=== PATIENT | female | born 1935 | race Caucasian/White ===

== ENCOUNTER → 2018-07-06 08:45 | Outpatient (CLI) | payer MEDICARE, SELFPAY ==
--- NOTE | 2018-07-06 08:48 | CDU_ITS ---
Reason For Study: Carotid artery stenosis Rt. Velocities/BP Lt. Velocities/BP Prox CCA 96.2/25.2 cm/sec. Prox CCA 67/19.3 cm/sec. Mid CCA 76.8/25.8 cm/sec. Mid CCA 65.7/22.3 cm/sec. Dist CCA 92.6/28.7 cm/sec. Dist CCA 59.2/18.8 cm/sec. Prox ICA 70.4/26.4 cm/sec. Prox ICA 72.7/21.7 cm/sec. Mid ICA 93.8/33.4 cm/sec. Mid ICA 60.2/23.7 cm/sec. Dist ICA 108/46.3 cm/sec. Dist ICA 52.4/15.9 cm/sec. Rt. ICA/CCA = 1.17. Lt. ICA/CCA = 1.11. Prox ECA 78/13.5 cm/sec. Prox ECA 53/9.82 cm/sec. Rt. Vert. 73.8/18.8 cm/sec. Lt. Vert. 69.5/25.1 cm/sec. Right Extracranial There is no significant atherosclerotic plaque noted in the right common carotid artery. There is heterogeneous, smooth atherosclerotic plaque noted in the right internal carotid artery. There is no significant atherosclerotic plaque noted in the right external carotid artery. Antegrade flow is noted in the right vertebral artery. Left Extracranial There is heterogeneous, smooth atherosclerotic plaque noted in the left common carotid artery. There is intimal thickening but no significant atherosclerotic plaque noted in the left internal carotid artery. There is no significant atherosclerotic plaque noted in the left external carotid artery. Antegrade flow is noted in the left vertebral artery. Procedure Carotid Duplex [id number]. Exam performed in department. Interpretation Summary Mild (<50%) stenosis right extracranial internal carotid. Mild (<50%) stenosis left extracranial internal carotid. Flow within the vertebral arteries is antegrade bilaterally. Ordering Physician: Trung Amaya Referring Physician: Aristeo Montano Performed By: Yulia Kraus RVT and Student
== END ==
PROVIDERS: Family Provider Family Medicine; PCP Family Medicine; Visit Provider Surgery Vascular Surgery
DX: I65.23 Occlusion and stenosis of bilateral carotid arteries (principal); I10 Essential (primary) hypertension; M79.605 Pain in left leg; M79.604 Pain in right leg; M79.89 Other specified soft tissue disorders; R09.89 Other specified symptoms and signs involving the circulatory and respiratory systems
CPT/HCPCS: 93880

== ENCOUNTER 2020-12-24 09:09 | Outpatient (RCR) | payer MEDICARE, SELFPAY | END 2020-12-24 23:59 | LOC: IMMUN 09:09 | PROVIDERS: PCP Family Medicine; Referring Provider Family Medicine; Visit Provider Family Medicine | DX: Z23 Encounter for immunization (principal) | CPT/HCPCS: 0011A; 0012A ==

== ENCOUNTER → 2021-02-06 09:53 | Outpatient (CLI) | payer MEDICARE, SELFPAY ==
--- NOTE | 2021-02-06 09:56 | CDU_ITS ---
Reason For Study: Carotid stenosis Rt. Velocities/BP Lt. Velocities/BP Prox CCA 79.9/17.3 cm/sec. Prox CCA 71.8/20.3 cm/sec. Mid CCA 85.2/21.3 cm/sec. Mid CCA 70/18.6 cm/sec. Dist CCA 82.6/18.6 cm/sec. Dist CCA 63.9/17.7 cm/sec. Prox ICA 54.2/10.2 cm/sec. Prox ICA 53.5/11.6 cm/sec. Mid ICA 84.9/24.5 cm/sec. Mid ICA 62.6/19.8 cm/sec. Dist ICA 94.8/30 cm/sec. Dist ICA 66.1/15.8 cm/sec. Rt. ICA/CCA = 1.15. Lt. ICA/CCA = 0.94. Prox ECA 121.1/7.9 cm/sec. Prox ECA 69.2/2.9 cm/sec. Rt. Vert. 37.8/9 cm/sec. Lt. Vert. 58.1/15.1 cm/sec. Right Extracranial There is intimal thickening but no significant atherosclerotic plaque noted in the right common carotid artery. There is heterogeneous, smooth atherosclerotic plaque noted in the right internal carotid artery. There is intimal thickening but no significant atherosclerotic plaque noted in the right external carotid artery. Antegrade flow is noted in the right vertebral artery. Left Extracranial There is intimal thickening but no significant atherosclerotic plaque noted in the left common carotid artery. There is heterogeneous, irregular atherosclerotic plaque noted in the left internal carotid artery. There is no significant atherosclerotic plaque noted in the left external carotid artery. Antegrade flow is noted in the left vertebral artery. Procedure Carotid Duplex 36239. This is a Carotid Duplex examination using B-mode, color flow and specral Doppler. Exam performed in department. VL/Carotid Duplex Ultrasound Interpretation Summary Mild (<50%) stenosis right extracranial internal carotid. Mild (<50%) stenosis left extracranial internal carotid. Flow within the vertebral arteries is antegrade bilaterally. Ordering Physician: Trung Amaya Referring Physician: Aristeo Montano Performed By: Loly Hairston RVT
== END ==
PROVIDERS: PCP Family Medicine; Referring Provider Surgery Vascular Surgery; Visit Provider Surgery Vascular Surgery
DX: I65.23 Occlusion and stenosis of bilateral carotid arteries (principal)
CPT/HCPCS: 93880

== ENCOUNTER 2021-04-03 18:50 | Inpatient (IN) | payer MEDICARE, SELFPAY ==
--- NOTE | 2021-04-03 21:39 | HP.PCM_ITS ---
HPI - General General Date of Admission: 04/03/21 HPI Narrative 03/21/2021 RESHMA CLEMONS, is a 85 Female with below past medical history admitted to [facility] with bright red blood per rectum. Patient is on aspirin, plavix for remote history of coronary artery disease. Patient hypotensive on presentation. Hemoglobin 9, high sensitivity troponin 74, but patient has chronic elevation of troponin. Patient presented to [facility] Emergency Department, IV fluid bolus given, transferred to [facility] for further care. Diarrhea for 2-3 days, noted blood in stool day of admission, denies abdominal pain. Trend troponin for elevated Troponin. Monitor H&H, transfuse if hemoglobin < 8, Protonix IV, check fecal occult blood, consult GI for bright red blood per rectum. Monitor acute on chronic kidney disease. CT abdomen/pelvis negative for diverticulitis. GI offered colonoscopy for lower GI bleed, patient declined colonoscopy. Acute kidney injury improved. H&H stable. Elevated troponin chronic thought secondary to chronic kidney disease. Hyponatremia improved with fluid restriction. [facility] Medical History (Updated 04/04/21 @ 01:51 by Elda Dalton) Anxiety Asthma Congestive heart failure (CHF) GERD (gastroesophageal reflux disease) GI bleed History of transcatheter aortic valve replacement (TAVR) Hypertension Kidney disease Pacemaker Stroke/cerebrovascular accident Home Medications acetaminophen 650 mg PO Q6H PRN 04/03/21 [History Last Taken Unknown] aspirin 81 mg PO DAILY 04/03/21 [History Last Taken Unknown] benzonatate 100 mg PO TID 04/03/21 [History Last Taken Unknown] clopidogrel [Plavix] 75 mg PO DAILY 04/03/21 [History Last Taken Unknown] furosemide 20 mg PO DAILY 04/03/21 [History Last Taken Unknown] gabapentin 100 mg PO TID 04/03/21 [History Last Taken Unknown] guaifenesin [Mucinex] 600 mg PO BID 04/03/21 [History Last Taken Unknown] isosorbide mononitrate 30 mg PO DAILY 04/03/21 [History Last Taken Unknown] lidocaine 1 applic TOPICAL BID PRN 04/03/21 [History Last Taken Unknown] melatonin 3 mg PO QHS 04/03/21 [History Last Taken Unknown] mirtazapine [Remeron] 7.5 mg PO QHS 04/03/21 [History Last Taken Unknown] multivitamin 1 tab PO DAILY 04/03/21 [History Last Taken Unknown] oxycodone [OxyIR] 5 mg PO Q4H PRN 04/03/21 [History Last Taken Unknown] pantoprazole [Protonix] 40 mg PO BIDAC 04/03/21 [History Last Taken Unknown] rosuvastatin [Crestor] 10 mg PO QHS 04/03/21 [History Last Taken Unknown] sodium chloride [[place] Nasal Mist] 1 spray INTRANASAL Q6H PRN PRN 04/03/21 [History Last Taken Unknown] sodium zirconium cyclosilicate [Lokelma] 5 g PO DAILY 04/03/21 [History Last Taken Unknown] Allergy/AdvReac Type Severity Reaction Status Date / Time quinapril Allergy Swelling Verified 04/03/21 19:58 amoxicillin AdvReac Nausea/Vom/ Verified 04/03/21 19:57 Diarrhea ciprofloxacin AdvReac Nausea Verified 04/03/21 19:57 levofloxacin AdvReac Nausea/Vom/ Verified 04/03/21 19:59 Diarrhea quinapril hcl Allergy Swelling Uncoded 04/03/21 19:59 Surgical History (Updated 04/03/21 @ 21:[address] Devin Napoles MD) History of heart artery stent Social History (Updated 04/03/21 @ 21:[address] Devin Napoles MD) household members: spouse Smoking Status: Never smoker alcohol intake: never substance use type: does not use ROS Constitutional Constitutional: Denies chills, fever(s) or weight gain ENT HEENT: Denies headache(s), nasal congestion or nasal discharge Cardiovascular Cardiovascular: Denies chest pain or palpitations Respiratory/Chest Respiratory/Chest: Denies cough, excessive phlegm production or shortness of breath with exertion Gastrointestinal Gastrointestinal: Denies abdominal pain, nausea or vomiting Genitourinary Genitourinary: Denies dysuria Musculoskeletal Musculoskeletal: Denies joint pain or joint swelling Integumentary Integumentary: Denies rash or wounds Neurologic Neurologic: Denies focal weakness, numbness or tingling Psychiatric Psychiatric: Reports auditory hallucinations; Denies anxiety, depression, homicidal ideation or suicidal ideation Physical Exam Const alert and oriented x3 General Appearance: cooperative HEENT normocephalic Eyes PERRL and EOMs intact bilaterally Neck supple, no JVD and no carotid bruits Resp normal respiratory effort, normal air movement and clear to auscultation bilaterally Cardio regular rate and regular rhythm GI normal to inspection, nondistended, normoactive bowel sounds, non-tender and non-distended Extremity normal capillary refill General Extremity: Negative for edema Skin no rashes or lesions noted General Skin Exam: no breakdown Psych affect normal Appearance: appropriate Results Lab / Micro Data Result Diagrams: 04/04/21 05:26 04/04/21 05:26 Assessment & Plan Assessment/Plan (1) Debility: (2) Lower gastrointestinal bleeding: (3) Elevated troponin: (4) Chronic kidney disease: (5) Hyponatremia: (6) Asthma: (7) Osteoarthritis: (8) GERD (gastroesophageal reflux disease): (9) Gout: (10) Hypertension: (11) Stroke: (12) Congestive heart failure: (13) Coronary artery disease: PLAN: 85 year old female with below past medical history hospitalized for lower GI bleed, diverticulitis ruled out, patient declined colonoscopy, complicated by acute on chronic kidney disease, hyponatremia, elevated troponin, admitted to TCU with debility, here for rehabilitation, strengthening, prior to discharge home with . * Debility - PT/OT. * Pain - Tylenol 1000MG Q6H PRN pain (1-5), Oxycodone 5MG Q4H PRN pain (6-10), Lidoderm 5% ointment BID PRN. * Bowel - Miralax 17GM daily, Senna/colace 1 tablet BID. * Adult immunization - Administer Prevnar 13, Pneumovax 23, Fluzone, COVID19 vaccine as appropriate. * DVT prophylaxis - Hold, recent GI bleed, on dual antiplatelet therapy. * Coronary Artery Disease status post 4 stents - Isosorbide [place] 30MG daily, Plavix 75MG daily, Aspirin 81MG daily. * Hyperlipidemia - Atorvastatin 20MG QHS. * Chronic cough - Tessalon Perles 100MG TID PRN, Mucinex 600MG BID. * Edema - Lasix 20MG daily. * Neuropathic pain - Gabapentin 100MG TIDCM. * Insomnia - Melatonin 3MG QHS. * Depression/insomnia/appetite loss - Mirtazapine 7.5MG QHS, stable chronic residential use, GDR not recommended. * Nutrition - MVI daily. * GERD - Pantoprazole 40MG BID. * Dry nares - Sodium chloride 1 spray Q6H PRN. * Hyperkalemia - K 5.4, Kayexalate 15GM PO x 1 bottle, BMP next day. * Anemia - Hemoglobin 7.2, Type & Cross 2 units PRBC, transfuse per protocol, H&H 24 hours after transfusion.
[2021-04-03 22:13] VITALS: BP 120/62; PULSE 85; RESP 18; TEMP 36.8; O2SAT 95
[2021-04-03 22:45] VITALS: O2SAT 95
[2021-04-03] MEDS: MELATONIN 3 MG TABLET PO (22:54)
[2021-04-03] MEDS: Atorvastatin Calcium 20 MG Tablet PO (22:54)
[2021-04-03] MEDS: Mirtazapine 15 MG Tablet 7.5 MG PO (22:55)
[2021-04-03] MEDS: Lidocaine 5% Patch 1 PATCH TOPICAL (22:58)
[2021-04-03 23:00] VITALS: BMI 27.3
[2021-04-04 05:29] VITALS: BP 111/48; PULSE 94; RESP 19; TEMP 36.3; O2SAT 91
[2021-04-04] MEDS: Clopidogrel Bisulfate 75 MG Tablet PO (05:32)
[2021-04-04] MEDS: Senna/Docusate Sodium 1 Tablet PO ×2 (05:32→17:08)
[2021-04-04] MEDS: guaiFENesin 600 MG Tablet PO ×2 (05:32→17:07)
[2021-04-04] MEDS: Polyethylene Glycol 3350 17 GM PACKET PO (05:32)
[2021-04-04] MEDS: Furosemide 20 MG Tablet PO (05:33)
[2021-04-04 05:36] LABS: Absolute Lymphocyte Count 2.29 X10^3/uL (0.83-4.51); Absolute Neutrophil Count 4.4 X10^3/uL (2.0-7.7); Basophil# 0.06 X10^3/uL; Basophil% 0.8 % (0-1); Eosinophil# 0.37 X10^3/uL; Eosinophils% 4.7 % (0-5); Hematocrit 23.9 % (37-47); Hemoglobin 7.2 g/dL (12.0-15.0); Lymphocyte # 2.29 X10^3/ul (0.83-4.51); Lymphocyte % 29.2 % (19-41); Mean Corp Hgb Conc 30.1 g/dL (32-36); Mean Corpuscular Hgb 30.3 pg (27.0-32.0); Mean Corpuscular Volume 100.4 fL (81-99); Mean Platelet Vol. 9.7 fl (6.2-12.0); Monocyte# 0.71 X10^3/uL; NRBC Flagged by Analyzer 0 % (0-5); Neutrophil # 4.39 X10^3/uL (2.7-7.7); Neutrophil % 55.9 % (47-70); Platelet Count 243 K/mm3 (150-450); RBC Distribution Width CV 14.5 % (11.6-14.6); Red Blood Count 2.38 M/mm3 (4.2-5.4); White Blood Count 7.9 K/mm3 (4.4-11.0)
[2021-04-04 05:57] LABS: Anion Gap 5 (5-15); BUN 65 mg/dL (7-18); BUN/Creat Ratio 25.7 RATIO (10-20); Calcium,Total 9.7 mg/dL (8.5-10.1); Chloride 111 mmol/L (98-107); Creatinine, Serum 2.53 mg/dL (0.55-1.02); EST Glomerular Filtration Rate 19 mL/min (>60); Est Glom Filt Rate - Afr Amer 23 mL/min (>60); Estimated Creatinine Clearance 11.68 ml/min; Glucose 91 mg/dL (74-106); Potassium 5.2 mmol/L (3.5-5.1); Sodium Level 140 mmol/L (136-145)
[2021-04-04] MEDS: Gabapentin 100 MG Capsule PO ×3 (08:06→17:07)
[2021-04-04] MEDS: Multivitamins,Therapeutic Tablet 1 TABLET PO (08:06)
[2021-04-04] MEDS: Isosorbide Mononitrate 30 MG Tablet PO (08:06)
[2021-04-04] MEDS: Pantoprazole Sodium 40 MG Tablet PO ×2 (08:06→17:07)
[2021-04-04] MEDS: Aspirin 81 MG TAB.CHEW PO (08:07)
--- NOTE | 2021-04-04 10:47 | CASEMGMT ---
Social Work Met with pt for initial assessment. Discussed Code status and reviewed and assisted with completing MOLST form. Pt choosing to be DNRCCA with no intubation and trial artificial nutrition if needed. Communication to nursing and doctor and MOLST form placed on chart. Requested palliative referral. Referral made. Explained [facility] insurance with NRD of 04/09 and continued stay is not guaranteed. Pt plans to return home with her spouse at time of discharge. SW will continue to follow. CARRIE Tanner
[2021-04-04] MEDS: Sodium Polystyrene Sulfonate 15 GM/60 ML UDC PO (10:48)
[2021-04-04] MEDS: Tuberculin,Purif.prot.deriv. 50 TU/ML Vial 0.1 ML ID (10:48)
[2021-04-04 13:26] VITALS: BP 115/52; PULSE 84; RESP 18; TEMP 36.7; O2SAT 95
--- NOTE | 2021-04-04 15:01 | CHAPLAIN ---
Type of Pastoral Visit _x__ Initial Visit ___ Follow-up Visit ___ On-call Visit ___ General Patient Visit ___ Spiritual Assessment ___ Family Conference ___ Bereavement ___ Rapid Response ___ Code Blue ___ Other (describe below) Pastoral Care Referral From _x__ Patient ___ Family ___ Nurse ___ Physician ___ Sr. Logistics Analyst ___ Motor Analyst ___ Other (describe below) Sacrament/Intervention ___ Active listening ___ Anointing ___ Sabianism ___ Bereavement ___ Communion ___ Penelope exploration ___ ___ Life review ___ Prayer ___ Reconciliation ___ Sacrament of Sick _x__ Supportive presence ___ Wedding ___ Other (describe below) Pastoral Comments introduction to patient and the role of the extension service advisor; pt has her database administration manager visiting at this time; welcome to this clergy; offer of support for future days
--- NOTE | 2021-04-04 15:44 | PHA.CONS_ITS ---
Progress Note - Pharmacy Subjective: TCU ADMISSION Objective: Allergies quinapril Allergy (Verified 04/03/21 19:58) Swelling amoxicillin Adverse Reaction (Verified 04/03/21 19:57) Nausea/Vom/Diarrhea ciprofloxacin Adverse Reaction (Verified 04/03/21 19:57) Nausea levofloxacin Adverse Reaction (Verified 04/03/21 19:59) Nausea/Vom/Diarrhea Current Medications Generic Name Dose Route Start Last Admin Trade Name Freq PRN Reason Stop Dose Admin Acetaminophen 1,000 mg 04/03/21 21:59 Acetaminophen 500 Mg Tablet PO Q6H PRN PRN pain 1-5 Aspirin 81 mg 04/04/21 08:00 04/04/21 08:07 Aspirin 81 Mg Tab.Chew PO 81 mg DAILYCM PRADEEP Administration Atorvastatin Calcium 20 mg 04/03/21 22:00 04/03/21 22:54 Atorvastatin Calcium 20 Mg Tablet PO 20 mg QHS PRADEEP Administration Benzonatate 100 mg 04/03/21 20:06 Benzonatate 100 Mg Capsule PO TID PRN PRN COUGH Clopidogrel Bisulfate 75 mg 04/04/21 06:00 04/04/21 05:32 Clopidogrel Bisulfate 75 Mg Tablet PO 75 mg DAILY PRADEEP Administration Furosemide 20 mg 04/04/21 06:00 04/04/21 05:33 Furosemide 20 Mg Tablet PO 20 mg DAILY PRADEEP Administration Gabapentin 100 mg 04/04/21 07:45 04/04/21 12:05 Gabapentin 100 Mg Capsule PO 05/04/21 07:46 100 mg TIDCM PRADEEP Administration Guaifenesin 600 mg 04/04/21 06:00 04/04/21 05:32 Guaifenesin 600 Mg Tablet PO 600 mg BID PRADEEP Administration Isosorbide Mononitrate 30 mg 04/04/21 08:00 04/04/21 08:06 Isosorbide Mononitrate 30 Mg Tablet PO 30 mg DAILYCM PRADEEP Administration Lidocaine 1 patch 04/04/21 22:00 Lidocaine 5% Patch TOPICAL QHS [facility] Protocol Melatonin 3 mg 04/03/21 22:00 04/03/21 22:54 Melatonin 3 Mg Tablet PO 3 mg QHS PRADEEP Administration Mirtazapine 7.5 mg 04/03/21 22:00 04/03/21 22:55 Mirtazapine 15 Mg Tablet PO 7.5 mg QHS PRADEEP Administration Multivitamins 1 tablet 04/04/21 08:00 04/04/21 08:06 Multivitamins,Therapeutic Tablet PO 1 tablet DAILYCM PRADEEP Administration Oxycodone HCl 5 mg 04/03/21 20:29 Oxycodone 5 Mg Tablet PO Q4H PRN PRN pain 5-10 Pantoprazole Sodium 40 mg 04/04/21 07:30 04/04/21 08:06 Pantoprazole Sodium 40 Mg Tablet PO 40 mg BIDAC PRADEEP Administration Polyethylene Glycol 17 gm 04/04/21 06:00 04/04/21 05:32 Polyethylene Glycol 3350 17 Gm Packet PO 17 gm DAILY PRADEEP Administration Senna/Docusate Sodium 1 tablet 04/04/21 06:00 04/04/21 05:32 Senna/Docusate Sodium 1 Tablet PO 1 tablet BID PRADEEP Administration Sodium Chloride 1 spray 04/03/21 20:06 Sodium Chloride 0.65% 1 [place].Btl NASAL Q6H PRN PRN CONGESTION Tuberculin PPD 0.1 ml 04/11/21 10:00 Tuberculin,Purif.Prot.Deriv. 50 Tu/Ml Vial ID 04/11/21 10:01 X1 ONE Problem List (Last Updated 04/04/21 @ 01:51 by Elda Dalton) Coronary artery disease (Acute) Congestive heart failure (Acute) Stroke (Acute) Hypertension (Chronic) Gout (Acute) GERD (gastroesophageal reflux disease) (Acute) Osteoarthritis (Acute) Asthma (Acute) Debility (Acute) Lower gastrointestinal bleeding (Acute) Elevated troponin (Acute) Chronic kidney disease (Chronic) Hyponatremia (Acute) Vital Signs Temp Pulse Resp BP Pulse Ox 98.0 F 84 18 115/52 L 95 04/04/21 13:26 04/04/21 13:26 04/04/21 13:26 04/04/21 13:26 04/04/21 13:26 Oxygen Delivery Method Room Air Weight: 63.5 kg Body Mass Index (BMI) 27.3 Sodium 140 mmol/L (136-145) 04/04/21 05:26 Potassium 5.2 mmol/L (3.5-5.1) H 04/04/21 05:26 Chloride 111 mmol/L (98-107) H 04/04/21 05:26 Carbon Dioxide 24.0 mmol/L (21.0-32.0) 04/04/21 05:26 Anion Gap 5 (5-15) 04/04/21 05:26 BUN 65 mg/dL (7-18) H 04/04/21 05:26 Creatinine 2.53 mg/dL (0.55-1.02) H 04/04/21 05:26 Est GFR (MDRD) Af Amer 23 mL/min (>60) L 04/04/21 05:26 Est GFR (MDRD) Non-Af 19 mL/min (>60) L 04/04/21 05:26 BUN/Creatinine Ratio 25.7 RATIO (10-20) H 04/04/21 05:26 Glucose 91 mg/dL (74-106) 04/04/21 05:26 Assessment/Plan: 1. Pain: Tylenol 1000mg PO Q6h PRN Pain 1-5, Oxycodone 5mg PO Q4h PRN Pain 5-10, Lidocaine Patch 1 patch topically QHS. Please continue to monitor for increased/decreased S/S pain, local irritation with lidocaine patch use. 2. CAD/HLD/Edema: Aspirin 81mg PO Daily, Lipitor 20mg PO QHS, Plavix 75mg PO Daily, Lasix 20mg PO Daily, Imdur 30mg PO Daily. Please continue to monitor for S/S bleeding, given recent GI bleed/anemia, BP, pulse, I/O, electrolytes, renal function, lipid panel annually or sooner if clinically indicated. *3. Neuropathic pain: Gabapentin 100mg PO TIDCM thru 05/04/21. Please consider decreasing dose to 100mg PO daily due to reduced CrCl, thank you. 4. Chronic Cough: Tessalon Perles 100mg PO TID PRN, Mucinex 600mg PO BID. Please continue to encourage hydration, monitor for medication effectiveness. 5. Dry Nose: [place] nasal [place] 1 spray Q6h PRN. Please continue to monitor PRN use. 6. GI Bleed/GERD: Protonix 40mg PO BID. Please continue to monitor for S/S recurrent bleed, GERD exacerbations. 7. General Wellness: MVI 1 tab PO Daily. Please continue to monitor. 8. Insomnia: Melatonin 3mg PO QHS. Please continue to monitor for medication effectiveness. If ineffective, consider administering at least 2 hours prior to desired bedtime, thanks. Psychotropic Medications: 9. Depression/appetite loss: Remeron 7.5mg PO QHS. Please see note in H/P regarding GDR recommendation, thank you. Unnecessary Medications: None Bowel Regimen: Miralax 17g PO Daily, Senna/Docusate 1 tab PO BID. Please continue to monitor for increased/decreased S/S constipation and/or diarrhea. Date of Note:: 04/04/21
[2021-04-04] MEDS: Magnesium Citrate 300 ML PO (19:24)
[2021-04-04] MEDS: Lidocaine 5% Patch 1 PATCH TOPICAL (23:03)
[2021-04-04] MEDS: Mirtazapine 15 MG Tablet 7.5 MG PO (23:04)
[2021-04-04] MEDS: MELATONIN 3 MG TABLET PO (23:04)
[2021-04-04] MEDS: Atorvastatin Calcium 20 MG Tablet PO (23:04)
[2021-04-05 01:55] VITALS: PULSE 65
[2021-04-05] MEDS: guaiFENesin 600 MG Tablet PO ×2 (05:23→17:54)
[2021-04-05] MEDS: Pantoprazole Sodium 40 MG Tablet PO ×2 (05:23→17:54)
[2021-04-05] MEDS: Senna/Docusate Sodium 1 Tablet PO ×2 (05:23→17:54)
[2021-04-05] MEDS: Clopidogrel Bisulfate 75 MG Tablet PO (05:23)
[2021-04-05] MEDS: Polyethylene Glycol 3350 17 GM PACKET PO (05:23)
[2021-04-05] MEDS: Furosemide 20 MG Tablet PO (05:23)
[2021-04-05 06:03] LABS: Anion Gap 5 (5-15); BUN 73 mg/dL (7-18); BUN/Creat Ratio 26.9 RATIO (10-20); Calcium,Total 9.4 mg/dL (8.5-10.1); Chloride 107 mmol/L (98-107); Creatinine, Serum 2.71 mg/dL (0.55-1.02); EST Glomerular Filtration Rate 18 mL/min (>60); Est Glom Filt Rate - Afr Amer 21 mL/min (>60); Glucose 101 mg/dL (74-106); Potassium 5.3 mmol/L (3.5-5.1); Sodium Level 141 mmol/L (136-145)
[2021-04-05 07:05] VITALS: BP 105/59; PULSE 97; RESP 14; TEMP 36.9
[2021-04-05] MEDS: Gabapentin 100 MG Capsule PO ×2 (08:05→17:54)
[2021-04-05] MEDS: Aspirin 81 MG TAB.CHEW PO (08:06)
[2021-04-05] MEDS: Isosorbide Mononitrate 30 MG Tablet PO (08:07)
[2021-04-05 08:14] VITALS: BP 110/65; PULSE 105; RESP 18; O2SAT 96
--- NOTE | 2021-04-05 08:16 | NURSING ---
Addendum entered by Elsa Ricks 04/05/21 08:26: lungs clear except for faint crackles RT lower lobe. will continue to monitor. pt denies CP, able to bring up clear thick sputum. pt is on mucinex. dry cough noted. Original Note: entered pt room to update her that they are ready to administer blood in transfusion suite. pt sitting in chair, attempting to eat brkfst and began spitting up her food. stated it felt like it wasnt going done. vitals stable. speech ordered to check swallowing.
--- NOTE | 2021-04-05 08:37 | NURSING ---
Addendum entered by Elsa Ricks 04/05/21 08:40: updated Elsa, nurse at infusion center that speech was consulted d/t swallowing issues this AM. explained to keep pt NPO except for water. spoke with Ciarra speech therapist and she will see pt as soon as possible. Original Note: off unit to infusion suite at this time via WC
[2021-04-05 15:19] VITALS: BP 127/66; PULSE 84; RESP 16; TEMP 36.6; O2SAT 96
[2021-04-05] MEDS: Sodium Polystyrene Sulfonate 15 GM/60 ML UDC 30 GM PO (16:06)
[2021-04-05] MEDS: Acetaminophen 500 MG Tablet 1000 MG PO (17:52)
[2021-04-05 20:40] VITALS: PULSE 82; RESP 16; O2SAT 93
[2021-04-05] MEDS: Mirtazapine 15 MG Tablet 7.5 MG PO (21:33)
[2021-04-05] MEDS: Atorvastatin Calcium 20 MG Tablet PO (21:33)
[2021-04-05] MEDS: MELATONIN 3 MG TABLET PO (21:33)
[2021-04-05] MEDS: Lidocaine 5% Patch 1 PATCH TOPICAL (21:41)
[2021-04-06 05:00] VITALS: BP 129/75; PULSE 74; RESP 16; TEMP 36.1; O2SAT 95
[2021-04-06] MEDS: Polyethylene Glycol 3350 17 GM PACKET PO (05:49)
[2021-04-06] MEDS: Clopidogrel Bisulfate 75 MG Tablet PO (05:49)
[2021-04-06] MEDS: Furosemide 20 MG Tablet PO (05:50)
[2021-04-06] MEDS: guaiFENesin 600 MG Tablet PO ×2 (05:50→16:40)
[2021-04-06] MEDS: Senna/Docusate Sodium 1 Tablet PO ×2 (05:50→16:40)
[2021-04-06] MEDS: Pantoprazole Sodium 40 MG Tablet PO ×2 (05:50→16:40)
[2021-04-06] MEDS: Timolol 0.5% 5ML OPTH.BTL 1 DRP EACH EYE ×2 (05:53→16:41)
[2021-04-06 06:22] LABS: Hematocrit 32.2 % (37-47); Hemoglobin 10.3 g/dL (12.0-15.0)
[2021-04-06 06:58] LABS: Anion Gap 3 (5-15); BUN 81 mg/dL (7-18); BUN/Creat Ratio 31.3 RATIO (10-20); Calcium,Total 9.3 mg/dL (8.5-10.1); Chloride 108 mmol/L (98-107); Creatinine, Serum 2.59 mg/dL (0.55-1.02); EST Glomerular Filtration Rate 19 mL/min (>60); Est Glom Filt Rate - Afr Amer 23 mL/min (>60); Estimated Creatinine Clearance 11.41 ml/min; Glucose 88 mg/dL (74-106); Potassium 4.3 mmol/L (3.5-5.1); Sodium Level 140 mmol/L (136-145)
[2021-04-06] MEDS: Isosorbide Mononitrate 30 MG Tablet PO (08:37)
[2021-04-06] MEDS: Aspirin 81 MG TAB.CHEW PO (08:37)
[2021-04-06] MEDS: Gabapentin 100 MG Capsule PO ×3 (08:37→16:40)
[2021-04-06 15:05] VITALS: BP 130/61; PULSE 70; RESP 18; TEMP 36.6; O2SAT 98
--- NOTE | 2021-04-06 18:32 | NURSING ---
Patient told this nurse she had coughed after eating some food and drinking some water. Patient states this happens sometimes. She said some food came up with some phlegm. Patient is on a moist and minced diet and thin liquids. Charge nurse made aware. Will notify speech therapy.
[2021-04-06] MEDS: Lidocaine 5% Patch 1 PATCH TOPICAL (20:31)
[2021-04-06] MEDS: Atorvastatin Calcium 20 MG Tablet PO (20:32)
[2021-04-06] MEDS: Mirtazapine 15 MG Tablet 7.5 MG PO (20:32)
[2021-04-06] MEDS: MELATONIN 3 MG TABLET PO (20:32)
[2021-04-06 23:01] VITALS: PULSE 75; RESP 12
[2021-04-07] MEDS: Polyethylene Glycol 3350 17 GM PACKET PO (06:06)
[2021-04-07] MEDS: Furosemide 20 MG Tablet PO (06:06)
[2021-04-07] MEDS: Clopidogrel Bisulfate 75 MG Tablet PO (06:06)
[2021-04-07] MEDS: guaiFENesin 600 MG Tablet PO ×2 (06:06→17:11)
[2021-04-07] MEDS: Senna/Docusate Sodium 1 Tablet PO ×2 (06:06→17:11)
[2021-04-07] MEDS: Timolol 0.5% 5ML OPTH.BTL 1 DRP EACH EYE ×2 (06:07→17:11)
[2021-04-07 06:22] VITALS: BP 118/59; PULSE 76; RESP 14; TEMP 37
[2021-04-07] MEDS: Isosorbide Mononitrate 30 MG Tablet PO (08:05)
[2021-04-07] MEDS: Pantoprazole Sodium 40 MG Tablet PO ×2 (08:05→17:11)
[2021-04-07] MEDS: Aspirin 81 MG TAB.CHEW PO (08:05)
[2021-04-07] MEDS: Gabapentin 100 MG Capsule PO ×3 (08:05→17:11)
[2021-04-07 15:29] VITALS: BP 113/52; PULSE 87; RESP 18; TEMP 36.6; O2SAT 94
[2021-04-07] MEDS: Lidocaine 5% Patch 1 PATCH TOPICAL (21:00)
[2021-04-07] MEDS: Atorvastatin Calcium 20 MG Tablet PO (21:01)
[2021-04-07] MEDS: MELATONIN 3 MG TABLET PO (21:01)
[2021-04-07] MEDS: Mirtazapine 15 MG Tablet 7.5 MG PO (21:01)
[2021-04-07 22:10] LABS: Bedside Glucose 151 mg/dL (70-110)
[2021-04-07 23:36] VITALS: PULSE 68; RESP 14
--- NOTE | 2021-04-08 03:09 | NURSING ---
Pleasant and cooperative with care. Meds taken without difficulty. No c/o pain at this time.
[2021-04-08] MEDS: Timolol 0.5% 5ML OPTH.BTL 1 DRP EACH EYE ×2 (05:56→17:08)
[2021-04-08] MEDS: Senna/Docusate Sodium 1 Tablet PO ×2 (05:56→17:08)
[2021-04-08] MEDS: Polyethylene Glycol 3350 17 GM PACKET PO (05:56)
[2021-04-08] MEDS: Clopidogrel Bisulfate 75 MG Tablet PO (05:57)
[2021-04-08] MEDS: Furosemide 20 MG Tablet PO (05:57)
[2021-04-08] MEDS: guaiFENesin 600 MG Tablet PO ×2 (05:57→17:07)
[2021-04-08 06:58] VITALS: BP 116/57; PULSE 82; RESP 12; TEMP 36.3
[2021-04-08] MEDS: Pantoprazole Sodium 40 MG Tablet PO ×2 (08:12→17:07)
[2021-04-08] MEDS: Gabapentin 100 MG Capsule PO ×2 (08:12→12:43)
[2021-04-08] MEDS: Aspirin 81 MG TAB.CHEW PO (08:12)
[2021-04-08] MEDS: Isosorbide Mononitrate 30 MG Tablet PO (08:12)
[2021-04-08 14:47] VITALS: BP 125/63; PULSE 88; RESP 16; TEMP 36.2; O2SAT 93
--- NOTE | 2021-04-08 15:36 | NURSING ---
Complains of feeling really tired today. Talking to spouse on phone earlier and is hardly able to carry on conversation d/t being drowsy. Sleeping now at this time. Will continue to monitor.
--- NOTE | 2021-04-08 16:26 | CON.PCM.PA_ITS ---
Assessment & Plan Assessment/Plan (1) Debility: (2) Congestive heart failure: QUALIFIERS: Heart failure type: unspecified Heart failure chronicity: unspecified Qualified Code(s): I50.9 - Heart failure, unspecified (3) CKD (chronic kidney disease) stage 4, GFR 15-29 ml/min: (4) Aortic stenosis, severe: (5) Lower gastrointestinal bleeding: (6) Debility: (7) Asthma: QUALIFIERS: Asthma severity: unspecified severity Asthma persistence: unspecified Asthma complication type: unspecified Qualified Cod e(s): J45.909 - Unspecified asthma, uncomplicated (8) Osteoarthritis: QUALIFIERS: Osteoarthritis location: unspecified site Osteoarthritis type: primary Qualified Code(s): M19.91 - Primary osteoarthritis, unspecified site (9) GERD (gastroesophageal reflux disease): QUALIFIERS: Esophagitis presence: without esophagitis Qualified Code(s): K21.9 - Gastro-esophageal reflux disease without esophagitis (10) Gout: QUALIFIERS: Gout site: unspecified site Gout etiology: unspecified cause Chronicity: chronic Presence of tophus: without tophus Qualified Code(s): M1A.9XX0 - Chronic gout, unspecified, without tophus (tophi) (11) Hypertension: QUALIFIERS: Hypertension type: unspecified Qualified Code(s): I10 - Essential (primary) hypertension (12) Stroke: QUALIFIERS: CVA mechanism: unspecified Qualified Code(s): I63.9 - Cerebral infarction, unspecified (13) Coronary artery disease: QUALIFIERS: Coronary Disease-Associated Artery/Lesion type: [place] artery [place] vs. transplanted heart: [place] heart Associated angina: without angina Qualified Code(s): I25.10 - Atherosclerotic heart disease of [place] coronary artery without angina pectoris (14) Hyponatremia: (15) Elevated troponin: (16) Diverticulitis: PLAN: 85-year-old female with multiple comorbidities including CKD stage IV, severe aortic stenosis, and recent lower GI bleed requiring blood transfusions, seen today for initial palliative care consultation secondary to weakness and chronic conditions. She has chronic pain and takes gabapentin 100 mg TID and oxycodone 5 mg every 4 hours PRN at home. 1. Lethargy: Unclear etiology, nursing reports she is not usually like this. They are going to discuss with Dr. Napoles. Her vitals are stable. She does sound a little wet but denies any shortness of breath, cough, fevers. No urinary symptoms. She is so weak she can even sit up, which is atypical. 2. Debility and weakness: Multifactorial, supportive care, symptom management. She is a DNR CCA. Continue therapy 3. History of CHF: Appears to be compensated but has severe aortic stenosis. V itals are stable. On room air. 4. CAD/CVA/HTN/gout/GERD/OA/asthma/diverticulitis/recent elevated troponin/hyponatremia: Complicates overall care, management, recovery, and prognosis. Defer management to specialists and PCP. Thank you for the opportunity to participate in this patient's care, please do not hesitate to contact [facility] with any further questions or concerns. Palliative direct line is [phone]. We will have follow up in a few days since she is lethargic today. Did not call her spouse as she told me he just had procedure for kidney stones. She would benefit from palliative care as an outpatient given the severity of her aortic stenosis. She would actually qualify for hospice if interested in services. We will discuss this further at another time. She did express she and her spouse are requiring more care lately. Greater than 50% of F2F visit dedicated to education and counseling of palliative care services, medications, comorbid conditions and potential assistance with management, and plan of care moving forward. Start time: 162 End time: 1709 HPI Consult Data Date of Consult: 04/08/21 HPI Narrative HPI Narrative: RESHMA CLEMONS, is a 85 F, PMH as below, who presented to [facility] 04/03/2021 from [facility] after being admitted on 03/21 with acute GI bleed. Patient was hypotensive and symptomatic on presentation. She had an elevated troponin, thought to be related to CKD. GI was consulted and offered colonoscopy, however patient declined. She did have an acute kidney injury and hyponatremia as well. She was transferred to the transitional care unit for further rehab. Patient lives at home with her . She plans to return there once she is done with therapy. She does have chronic neuropathy and is on gabapentin 100 mg 3 times a day. She takes melatonin for insomnia. Also was on mirtazapine for appetite and depression. She is a DNR CCA with no intubation. Patient was transfused with 2 units of blood 04/04/2021 for hemoglobin of 7.2. 04/06 her hemoglobin was up to 10.3. Potassium appears to have returned to normal. Patient has significant renal dysfunction, GFR is 19. Patient reports feeling fatigued today. She can barely stay awake long enough to have a conversation. She is answering questions, but it seems difficult for her to get the words out because she is too weak. She is asking to be set up in bed so she can take a drink of water and may be eat something. Discussed with nursing, states she is normally not lethargic. She is not sure if there has been any further rectal bleeding, states the aides assist in cleaning her up and have not said that there was. She is breathing 24-minute. Denies any shortness of breath, chest pain, nausea, vomiting, or diarrhea. No lower extremity edema. Her abdomen is distended but she reports that is chronic. She has not had any sedating medication such as oxycodone since 04/03/2021, other than her scheduled dose of gabapentin. She does take gabapentin at home. REPLACED BY [facility] Medical History (Updated 04/08/21 @ 17:00 by MARGARITA Echeverria) Anxiety Asthma Congestive heart failure (CHF) GERD (gastroesophageal reflux disease) History of transcatheter aortic valve replacement (TAVR) Hypertension Kidney disease Pacemaker Stroke/cerebrovascular accident Home Medications acetaminophen 650 mg PO Q6H PRN 04/03/21 [History Last Taken Unknown] aspirin 81 mg PO DAILY 04/03/21 [History Last Taken Unknown] benzonatate 100 mg PO TID 04/03/21 [History Last Taken Unknown] clopidogrel [Plavix] 75 mg PO DAILY 04/03/21 [History Last Taken Unknown] furosemide 20 mg PO DAILY 04/03/21 [History Last Taken Unknown] gabapentin 100 mg PO TID 04/03/21 [History Last Taken Unknown] guaifenesin [Mucinex] 600 mg PO BID 04/03/21 [History Last Taken Unknown] isosorbide mononitrate 30 mg PO DAILY 04/03/21 [History Last Taken Unknown] lidocaine 1 applic TOPICAL BID PRN 04/03/21 [History Last Taken Unknown] melatonin 3 mg PO QHS 04/03/21 [History Last Taken Unknown] mirtazapine [Remeron] 7.5 mg PO QHS 04/03/21 [History Last Taken Unknown] multivitamin 1 tab PO DAILY 04/03/21 [History Last Taken Unknown] oxycodone [OxyIR] 5 mg PO Q4H PRN 04/03/21 [History Last Taken Unknown] pantoprazole [Protonix] 40 mg PO BIDAC 04/03/21 [History Last Taken Unknown] rosuvastatin [Crestor] 10 mg PO QHS 04/03/21 [History Last Taken Unknown] sodium chloride [[place] Nasal Mist] 1 spray INTRANASAL Q6H PRN PRN 04/03/21 [History Last Taken Unknown] sodium zirconium cyclosilicate [Lokelma] 5 g PO DAILY 04/03/21 [History Last Taken Unknown] Allergy/AdvReac Type Severity Reaction Status Date / Time quinapril Allergy Swelling Verified 04/03/21 19:58 amoxicillin AdvReac Nausea/Vom/ Verified 04/03/21 19:57 Diarrhea ciprofloxacin AdvReac Nausea Verified 04/03/21 19:57 levofloxacin AdvReac Nausea/Vom/ Verified 04/03/21 19:59 Diarrhea Surgical History History of heart artery stent Social History household members: spouse Smoking Status: Never smoker alcohol intake: never substance use type: does not use ROS ROS Narrative Review of systems otherwise negative from a constitutional, HEENT, respiratory, cardiovascular, GI, genitourinary, musculoskeletal, skin, neurologic, psychiatric and hematologic system unless stated above. Physical Exam Const oriented x3 and no apparent distress General Appearance: cooperative Orientation / Consciousness: lethargic; Negative for confused HEENT normocephalic and head/scalp atraumatic Neck supple General: trachea midline Resp Effort and Inspection: tachypneic; Negative for able to speak in complete sentences Auscultation: diminished lung sounds diffuse Cardio regular rate and regular rhythm Heart Sounds: murmur GI soft to palpation and non-tender Inspection: abdominal distention Auscultation: normoactive bowel sounds Extremity no clubbing, cyanosis or edema Skin General Skin Exam: atrophy and ecchymosis Rashes: no rashes Neuro moves all extremities and no focal motor deficits Sensorium / Orientation: lethargic Gait (Neuro): unable to assess gait Psych thought process normal and cooperative Appearance: other very fatigued, hard to keep her eyes open. Speech: slow
--- NOTE | 2021-04-08 16:52 | NURSING ---
Sleeps most of the afternoon. Awaked now and eating supper. Very drowsy. Movements and talking slow. Will address with Dr Napoles. Resident supervised while she eats supper.
[2021-04-08] MEDS: Mirtazapine 15 MG Tablet 7.5 MG PO (22:25)
[2021-04-08] MEDS: MELATONIN 3 MG TABLET PO (22:25)
[2021-04-08] MEDS: Lidocaine 5% Patch 1 PATCH TOPICAL (22:25)
[2021-04-08] MEDS: Atorvastatin Calcium 20 MG Tablet PO (22:25)
[2021-04-09 05:23] VITALS: BP 119/68; PULSE 82; RESP 18; TEMP 36.3; O2SAT 93
[2021-04-09] MEDS: Polyethylene Glycol 3350 17 GM PACKET PO (05:24)
[2021-04-09] MEDS: Furosemide 20 MG Tablet PO (05:25)
[2021-04-09] MEDS: Timolol 0.5% 5ML OPTH.BTL 1 DRP EACH EYE ×2 (05:25→17:36)
[2021-04-09] MEDS: Senna/Docusate Sodium 1 Tablet PO ×2 (05:25→17:36)
[2021-04-09] MEDS: Clopidogrel Bisulfate 75 MG Tablet PO (05:25)
[2021-04-09] MEDS: guaiFENesin 600 MG Tablet PO ×2 (05:25→17:36)
[2021-04-09] MEDS: Pantoprazole Sodium 40 MG Tablet PO ×2 (09:21→15:53)
[2021-04-09] MEDS: Isosorbide Mononitrate 30 MG Tablet PO (09:21)
[2021-04-09] MEDS: Gabapentin 100 MG Capsule PO ×2 (09:21→15:53)
[2021-04-09] MEDS: Aspirin 81 MG TAB.CHEW PO (09:22)
--- NOTE | 2021-04-09 14:03 | CASEMGMT ---
Social Work Brief interview for mental status (BIMS) and resident mood assessment (PHQ-9) completed on this day. BIMS score . PHQ-9 score 12/22. Pearl LUZ, NIS
[2021-04-09 15:41] VITALS: BP 101/60; PULSE 79; RESP 14; TEMP 36.3; O2SAT 94
[2021-04-09] MEDS: Lidocaine 5% Patch 1 PATCH TOPICAL (21:39)
[2021-04-09] MEDS: Mirtazapine 15 MG Tablet 7.5 MG PO (21:40)
[2021-04-09] MEDS: MELATONIN 3 MG TABLET PO (21:40)
[2021-04-09] MEDS: Atorvastatin Calcium 20 MG Tablet PO (21:45)
[2021-04-10 01:08] VITALS: PULSE 90; RESP 12
[2021-04-10 05:00] VITALS: BP 126/70; PULSE 88; RESP 12; TEMP 36.7
[2021-04-10] MEDS: Furosemide 20 MG Tablet PO (05:30)
[2021-04-10] MEDS: Timolol 0.5% 5ML OPTH.BTL 1 DRP EACH EYE ×2 (05:31→16:52)
[2021-04-10] MEDS: Clopidogrel Bisulfate 75 MG Tablet PO (05:31)
[2021-04-10] MEDS: Senna/Docusate Sodium 1 Tablet PO ×2 (05:31→16:52)
[2021-04-10] MEDS: Polyethylene Glycol 3350 17 GM PACKET PO (05:31)
[2021-04-10] MEDS: guaiFENesin 600 MG Tablet PO ×2 (05:31→16:52)
[2021-04-10] MEDS: Pantoprazole Sodium 40 MG Tablet PO ×2 (07:23→16:52)
[2021-04-10] MEDS: Aspirin 81 MG TAB.CHEW PO (08:14)
[2021-04-10] MEDS: Isosorbide Mononitrate 30 MG Tablet PO (08:14)
[2021-04-10] MEDS: Gabapentin 100 MG Capsule PO ×2 (08:14→16:52)
--- NOTE | 2021-04-10 09:20 | CASEMGMT ---
Social Work Plan of care meeting held. Patient present as well as patient spouse. Patient request for discharge date to be set for 04/12/2021. Team agreeable to discharge date being set for 04/12/2021. Physical, Occupational and Speech therapy recommending for patient to have continued services through home health. Patient is agreeable to recommendation. Patient also voiced need for front wheeled walker. Patient spouse plans to provide transportation to home for patient. Patient with no further questions. Will continue to follow to set up home health services and DME needs. Proposed discharge date: 04/12/2021 Disposition: Home with spouse. Pearl LUZ, BETO
--- NOTE | 2021-04-10 13:46 | ST.MBS ---
Modified Barium Swallow - Patient Information Study Date: 04/10/21 Study Time: 13:00 Direct Billable Minutes: 120 Total Minutes procedure & reportin Diagnosis: oropharyngeal dysphagia (R13.12) Referring Physician: Devin Napoles Chi Reason for Referral: To objectively assess swallow function under fluoroscopy and determine presence of aspiration. Medical History: RESHMA CLEMONS, is a 85 Female with below past medical history admitted to [facility] with bright red blood per rectum. Patient is on aspirin, plavix for remote history of coronary artery disease. Patient hypotensive on presentation. Hemoglobin 9, high sensitivity troponin 74, but patient has chronic elevation of troponin. Patient presented to [facility] Emergency Department, IV fluid bolus given, transferred to [facility] for further care. Diarrhea for 2-3 days, noted blood in stool day of admission, denies abdominal pain. Trend troponin for elevated Troponin. Monitor H&H, transfuse if hemoglobin < 8, Protonix IV, check fecal occult blood, consult GI for bright red blood per rectum. Monitor acute on chronic kidney disease. CT abdomen/pelvis negative for diverticulitis. GI offered colonoscopy for lower GI bleed, patient declined colonoscopy. Acute kidney injury improved. H&H stable. Elevated troponin chronic thought secondary to chronic kidney disease. Hyponatremia improved with fluid restriction. COUNTS INCLUDE 234 BEDS AT THE [facility] Medical History (Updated 04/04/21 @ 01:51 by Elda Dalton) Anxiety Asthma Congestive heart failure (CHF) GERD (gastroesophageal reflux disease) GI bleed History of transcatheter aortic valve replacement (TAVR) Hypertension Kidney disease Pacemaker Stroke/cerebrovascular accident Current Diet Ordered: soft and bite sized textures/thin liquids - Study Findings Consistencies: Thin Liquid, [place] Thick Liquid, Honey Thick Liquid, Pudding, Cookie - Penetration-Aspiration Scale Penetration-Aspiration Scale: OBJECTIVE ASSESSMENT OF SWALLOW FUNCTION (QUANTITATIVE ? PER TRIAL): PENETRATION / ASPIRATION SCALE (BARRERA): 1 = does not enter airway 2 = enters airway/above vocal folds/ejected 3 = enters airway/above vocal folds/not ejected 4 = enters airway/contacts vocal folds/ejected 5 = enters airway/contacts vocal folds/not ejected 6 = enters airway/below vocal folds/ejected 7 = enters airway/below vocal folds/not ejected despite effort 8 = enters airway/below vocal folds/no effort - Penetration-Aspiration Scale Score Thin Liquid via teaspoon Result: 8= enters airway/below vocal folds/no effort Comment: delayed cough ineffective at clearing Thin Liquid via teaspoon Chin tuck Result: 8= enters airway/below vocal folds/no effort Comment: although difficult to determine at 100% certainty given pt's positioning, trace amount of thin liquid spilled forward with chin tuck appearing to be aspirated Thin Liquid via small single sip from cup Chin tuck Result: 8= enters airway/below vocal folds/no effort Thin Liquid via small single sip from cup Result: 8= enters airway/below vocal folds/no effort [place] Thick Liquid via large single sip from cup Result: 2= enter airway/above vocal folds/ejected Honey Thick Liquid via small single sip from cup Result: 1= does not enter airway Pudding Result: 1= does not enter airway Cookie Result: 1= does not enter airway [place] Thick Liquid via sequential sips from straw Result: 8= enters airway/below vocal folds/no effort - Oral Phase Labial Seal: Interlabial escape, no progression to anterior lip Tongue Control During Bolus Hold: Posterior escape of less than half of bolus Bolus Preparation/Mastication: Slow prolonged chewing/mashing with complete recollection Bolus Transport/Lingual Motion: Delayed initiation of tongue motion Oral Residue: Residue collection on oral structures - Pharyngeal Phase Initiation of Pharyngeal Swallow: Bolus head in pyriforms Soft Palate Elevation: No bolus between soft palate and pharyngeal wall Laryngeal Elevation: Partial superior movement thyroid cart/partial apprx aryt-epig petiole Anterior Hyoid Excursion: Partial anterior movement Epiglottic Movement: Complete inversion Laryngeal Vestibule Closure at Height of Swallow: Incomplete; narrow column of air/contrast in laryngeal vestibule Pharyngeal Stripping Wave: Present - complete Pharyngoesophageal Segment Opening: Parital distension and partial duration; parital obstruction of flow Tongue Base Retraction: Narrow column of contrast between tongue base & post. pharyngeal wall Pharyngeal Residue: Trace residue within or on pharyngeal structures - Esophageal Phase Esophageal Clearance: Esophageal retention w/ retrograde flow through pharyngoesophageal seg - Treatment Strategies Effects of treatment strategies attemped:: *Chin tuck ineffective - Diagnosis/Impression Diagnosis: moderate oropharyngeal dysphagia (R13.12) Impression: Oral phase characterized by delayed tongue movement for anterior-posterior transfer of bolus. Pt demonstrated prolonged mastication of solid Isabelle Doone cookie with moderate oral residue post deglutition. Pharyngeal phase most significant for silent aspiration of thin liquids with or without use of a chin tuck. Pt did also silently aspirate mildly thick liquids when trialed via straw with sequential sips. Pt demonstrated delayed swallow onset with bolus to the pyriforms at times prior to swallow initiation. Trace pharyngeal residue. See recommendations below. Pt requires continues skilled ST intervention targeting diet analysis, compensatory strategy training, and pharyngeal strengthening. - Recommendations Diet: [place]-thick Liquids Comment: soft and bite sized textures Compensatory Strategies: Small Bites, Small Sips, No Straws, Sitting upright, Remain sitting upright for 30 minutes after PO intake Supervision: 1:1 Close Supervision Recommend Repeat Modified Barium Swallow: TBD Need for Skilled Speech Therapy Services: Yes Education Completed: 1. Described result of evaluation. - Status Active ST Patient: Active - Contact Information [facility] Speech Therapy:: Ciarra Armstrong MA, CCC-OWNER/PHOTOGRAPHER [place] [phone] [email or web address]
[2021-04-10 16:00] VITALS: BP 105/58; PULSE 87; RESP 18; TEMP 36.3; O2SAT 96
--- NOTE | 2021-04-10 17:00 | CHAPLAIN ---
Type of Pastoral Visit _x__ Initial Visit ___ Follow-up Visit ___ On-call Visit ___ General Patient Visit ___ Spiritual Assessment ___ Family Conference ___ Bereavement ___ Rapid Response ___ Code Blue ___ Other (describe below) Pastoral Care Referral From _x__ Patient ___ Family ___ Nurse ___ Physician ___ Photogrammetric Stereo Compiler ___ Weaver Wire Loom ___ Other (describe below) Sacrament/Intervention _x__ Active listening ___ Anointing ___ Zoroastrianism _x__ Bereavement ___ Communion _x__ Penelope exploration ___ ___ Life review _x__ Prayer ___ Reconciliation ___ Sacrament of Sick _x__ Supportive presence ___ Wedding ___ Other (describe below) Pastoral Comments patient speaks of going home; pt also reveals that her brother yesterday and this has been on her mind today; pt admits that she is weak and she is concerned for her [id number]; pt welcomes prayer and spiritual care support
--- NOTE | 2021-04-10 20:36 | DS.PCM_ITS ---
Providers Date of Admission: 04/03/21 Primary Care Physician: Dr. Aristeo Montano MD Consultations 04/04/21 12:03 Consult: Hospice / Palliative Care Routine Consulting Provider: [facility] Reason for Consult: Palliative Medicine Consult - CHF EMERGENT Consult: No MD Notified: Yes Date Notified: 04/04/21 Time Notified: 12:03 Method of Notification: Provider Initiated Reason For Visit: GI BLEED Diagnosis Discharge Diagnosis (1) Debility: Status: Deleted Code(s): R53.81 - Other malaise (2) Congestive heart failure: Status: Acute Code(s): I50.9 - Heart failure, unspecified Qualifiers: Heart failure type: unspecified Heart failure chronicity: unspecified Qualified Code(s): I50.9 - Heart failure, unspecified (3) CKD (chronic kidney disease) stage 4, GFR 15-29 ml/min: Status: Chronic Code(s): N18.4 - Chronic kidney disease, stage 4 (severe) (4) Aortic stenosis, severe: Status: Acute Code(s): I35.0 - Nonrheumatic aortic (valve) stenosis (5) Lower gastrointestinal bleeding: Status: Acute Code(s): K92.2 - Gastrointestinal hemorrhage, unspecified (6) Debility: Status: Acute Code(s): R53.81 - Other malaise (7) Asthma: Status: Acute Code(s): J45.909 - Unspecified asthma, uncomplicated Qualifiers: Asthma severity: unspecified severity Asthma persistence: unspecified Asthma complication type: unspecified Qualified Code(s): J45.909 - Unspecified asthma, uncomplicated (8) Osteoarthritis: Status: Acute Code(s): M19.90 - Unspecified osteoarthritis, unspecified site Qualifiers: Osteoarthritis location: unspecified site Osteoarthritis type: primary Qualified Code(s): M19.91 - Primary osteoarthritis, unspecified site (9) GERD (gastroesophageal reflux disease): Status: Acute Code(s): K21.9 - Gastro-esophageal reflux disease without esophagitis Qualifiers: Esophagitis presence: without esophagitis Qualified Code(s): K21.9 - Gastro-esophageal reflux disease without esophagitis (10) Gout: Status: Acute Code(s): M10.9 - Gout, unspecified Qualifiers: Gout site: unspecified site Gout etiology: unspecified cause Chronicity: chronic Presence of tophus: without tophus Qualified Code(s): M1A.9XX0 - Chronic gout, unspecified, without tophus (tophi) (11) Hypertension: Status: Chronic Code(s): I10 - Essential (primary) hypertension Qualifiers: Hypertension type: unspecified Qualified Code(s): I10 - Essential (primary) hypertension (12) Stroke: Status: Acute Code(s): I63.9 - Cerebral infarction, unspecified Qualifiers: CVA mechanism: unspecified Qualified Code(s): I63.9 - Cerebral infarction, unspecified (13) Coronary artery disease: Status: Acute Code(s): I25.10 - Atherosclerotic heart disease of [place] coronary artery without angina pectoris Qualifiers: Coronary Disease-Associated Artery/Lesion type: [place] artery [place] vs. transplanted heart: [place] heart Associated angina: without angina Qualified Code(s): I25.10 - Atherosclerotic heart disease of [place] coronary artery without angina pectoris (14) Hyponatremia: Status: Acute Code(s): E87.1 - Hypo-osmolality and hyponatremia (15) Elevated troponin: Status: Acute Code(s): R77.8 - Other specified abnormalities of plasma proteins (16) Diverticulitis: Status: Acute Code(s): K57.92 - Diverticulitis of intestine, part unspecified, without perforation or abscess without bleeding Medications at Discharge Home Medications Lokelma 5 g PO DAILY 04/03/21 aspirin 81 mg PO DAILY 04/03/21 benzonatate 100 mg PO TID 04/03/21 clopidogrel [Plavix] 75 mg PO DAILY 04/03/21 furosemide 20 mg PO DAILY 04/03/21 gabapentin 100 mg PO TID 04/03/21 guaifenesin [Mucinex] 600 mg PO BID 04/03/21 isosorbide mononitrate 30 mg PO DAILY 04/03/21 lidocaine 1 applic TOPICAL BID PRN 04/03/21 melatonin 3 mg PO QHS 04/03/21 mirtazapine [Remeron] 7.5 mg PO QHS 04/03/21 multivitamin 1 tab PO DAILY 04/03/21 rosuvastatin [Crestor] 10 mg PO QHS 04/03/21 sodium chloride 1 spray INTRANASAL Q6H PRN PRN 06/09/21 acetaminophen 1,000 mg PO Q6H PRN PRN #0 tab 04/10/21 pantoprazole [Protonix] 40 mg PO BIDAC 30 Days #60 tab 04/10/21 timolol maleate 1 drp EACH EYE BID #0 ml 04/10/21 Hospital Course Operations None Procedures None Summary of Care Provided Minutes Spent on Discharge: 35 Hospital Course: 85 year old female with below past medical history hospitalized for lower GI bleed, diverticulitis ruled out, patient declined colonoscopy, complicated by acute on chronic kidney disease, hyponatremia, elevated troponin, admitted to TCU with debility, here for rehabilitation, strengthening, prior to discharge home with . Discharge home with 04/12/2021, Home Health Care PT/OT/ST, Front Wheeled Walker. Physical Exam Const alert and oriented x3 General Appearance: cooperative HEENT normocephalic Eyes PERRL and EOMs intact bilaterally Neck supple, no JVD and no carotid bruits Resp normal respiratory effort, normal air movement and clear to auscultation bilaterally Cardio regular rate and regular rhythm GI normal to inspection, nondistended, normoactive bowel sounds, non-tender and non-distended Extremity normal capillary refill General Extremity: Negative for edema Skin no rashes or lesions noted General Skin Exam: no breakdown Psych affect normal Appearance: appropriate Weight / BMI Weight Weight: 56.444 kg Body Mass Index (BMI) 27.3 ABG / Lab / Microbiology Data Result Diagrams: 04/06/21 06:17 04/06/21 06:17 D/C Instructions Discharge Diet: No restrictions Discharge Activity: Return to Normal Activity, May Shower and Use Walker Weight Bearing Status: Weight bearing as tolerated Call your doctor if you observe: Fever of 101 or Higher, Inability to urinate, Inability to have a bowel movement, Shortness of breath, Fainting spells, Chest pain and Uncontrolled pain Additional Instructions: Discharge home with 04/12/2021, Home Health Care PT/OT/ST, Front Wheeled Walker. When: 1 week. Meaningful Use Info Meaningful Use Diagnoses (Choose all that apply): None applicable Discharge Plan Admission Admit Date/Time: 04/03/21 18:50 Primary Reason for Your Visit: Debility Attending Provider: Devin Napoles Chi Primary Care Provider: Aristeo Montano Consulting Providers: Trena Morris ; Carter Dutta ; Hyacinth Santos ; Rosa Fields ; Colleen Feng ; Danyell Gumzan P[employer]OT [employer]EL ENGINEER Instructions Additional Instructions / Restrictions: Discharge home with 04/12/2021, Home Health Care PT/OT/ST, Front Wheeled Walker. Discharge Orders/Prescriptions Prescriptions: New acetaminophen 500 mg Tablet 1,000 mg PO Q6H PRN PRN (Reason: pain 1-5) Qty: 0 RF: 0 timolol maleate 0.5 % Drops 1 drp EACH EYE BID Qty: 0 RF: 0 Continued multivitamin Tablet 1 tab PO DAILY RF: 0 isosorbide mononitrate 30 mg Tablet Extended Release 24 Hr 30 mg PO DAILY RF: 0 lidocaine 4 % Cream 1 applic TOPICAL BID PRN (Reason: Pain) RF: 0 melatonin 3 mg Tablet 3 mg PO QHS RF: 0 clopidogrel [Plavix] 75 mg Tablet 75 mg PO DAILY RF: 0 benzonatate 100 mg Capsule 100 mg PO TID RF: 0 aspirin 81 mg Tablet,Chewable 81 mg PO DAILY RF: 0 furosemide 20 mg Tablet 20 mg PO DAILY RF: 0 mirtazapine [Remeron] 15 mg Tablet 7.5 mg PO QHS RF: 0 gabapentin 100 mg Capsule 100 mg PO TID RF: 0 sodium chloride 0.65 % Aerosol,[place] 1 spray INTRANASAL Q6H PRN PRN (Reason: dryness) RF: 0 rosuvastatin [Crestor] 10 mg Tablet 10 mg PO QHS RF: 0 guaifenesin [Mucinex] 600 mg Tablet Extended Release 12hr 600 mg PO BID RF: 0 Lokelma 5 gram Powder In Packet 5 g PO DAILY RF: 0 pantoprazole [Protonix] 40 mg Tablet,Delayed Release (Dr/Ec) 40 mg PO BIDAC 30 Days Qty: 60 RF: 0 Discontinued oxycodone [OxyIR] 5 mg Capsule 5 mg PO Q4H PRN (Reason: pain 5-10) RF: 0 acetaminophen 325 mg Capsule 650 mg PO Q6H PRN (Reason: pain 1-5) RF: 0 Referrals / Follow Up: Aristeo Montano MD [Primary Care Provider] - Disposition Disposition (needs filled in before D/C Order can be placed): Home Health Service
[2021-04-10] MEDS: Atorvastatin Calcium 20 MG Tablet PO (21:35)
[2021-04-10] MEDS: MELATONIN 3 MG TABLET PO (21:35)
[2021-04-10] MEDS: Mirtazapine 15 MG Tablet 7.5 MG PO (21:35)
[2021-04-10] MEDS: Lidocaine 5% Patch 1 PATCH TOPICAL (21:39)
[2021-04-11 04:17] VITALS: BP 110/60; PULSE 87; RESP 18; TEMP 36.4; O2SAT 91
[2021-04-11] MEDS: guaiFENesin 600 MG Tablet PO ×2 (04:22→16:46)
[2021-04-11] MEDS: Furosemide 20 MG Tablet PO (04:22)
[2021-04-11] MEDS: Timolol 0.5% 5ML OPTH.BTL 1 DRP EACH EYE ×2 (04:22→16:46)
[2021-04-11] MEDS: Polyethylene Glycol 3350 17 GM PACKET PO (04:22)
[2021-04-11] MEDS: Clopidogrel Bisulfate 75 MG Tablet PO (04:22)
[2021-04-11] MEDS: Pantoprazole Sodium 40 MG Tablet PO ×2 (04:22→16:17)
[2021-04-11] MEDS: Senna/Docusate Sodium 1 Tablet PO ×2 (04:22→16:46)
[2021-04-11 05:59] LABS: Absolute Lymphocyte Count 2.04 X10^3/uL (0.83-4.51); Absolute Neutrophil Count 2.3 X10^3/uL (2.0-7.7); Basophil# 0.04 X10^3/uL; Basophil% 0.7 % (0-1); Eosinophil# 0.63 X10^3/uL; Eosinophils% 11.1 % (0-5); Hematocrit 33.9 % (37-47); Hemoglobin 10.6 g/dL (12.0-15.0); Lymphocyte # 2.04 X10^3/ul (0.83-4.51); Lymphocyte % 35.9 % (19-41); Mean Corp Hgb Conc 31.3 g/dL (32-36); Mean Corpuscular Hgb 30.1 pg (27.0-32.0); Mean Corpuscular Volume 96.3 fL (81-99); Mean Platelet Vol. 9.4 fl (6.2-12.0); Monocyte% 10.6 % (0-10); NRBC Flagged by Analyzer 0 % (0-5); Neutrophil # 2.33 X10^3/uL (2.7-7.7); Platelet Count 267 K/mm3 (150-450); RBC Distribution Width CV 14.6 % (11.6-14.6); RBC Distribution Width SD 51.1 fl (35.1-43.9); Red Blood Count 3.52 M/mm3 (4.2-5.4); White Blood Count 5.7 K/mm3 (4.4-11.0)
[2021-04-11 06:22] LABS: Anion Gap 6 (5-15); BUN 82 mg/dL (7-18); Calcium,Total 9.7 mg/dL (8.5-10.1); Chloride 109 mmol/L (98-107); Creatinine, Serum 2.16 mg/dL (0.55-1.02); EST Glomerular Filtration Rate 23 mL/min (>60); Est Glom Filt Rate - Afr Amer 28 mL/min (>60); Estimated Creatinine Clearance 13.68 ml/min; Glucose 97 mg/dL (74-106); Potassium 4.2 mmol/L (3.5-5.1); Sodium Level 140 mmol/L (136-145)
[2021-04-11] MEDS: Aspirin 81 MG TAB.CHEW PO (08:42)
[2021-04-11] MEDS: Isosorbide Mononitrate 30 MG Tablet PO (08:42)
[2021-04-11] MEDS: Gabapentin 100 MG Capsule PO ×2 (08:42→16:17)
[2021-04-11 13:31] VITALS: PULSE 89; RESP 14; O2SAT 98
--- NOTE | 2021-04-11 15:02 | CASEMGMT ---
Social [facility] for [facility] to set up front wheeled walker for patient, per intake walker to be shipped to patient home and will arrive in 2-3 days. Order faxed along with needed clinical information. Patient update and agreeable to delivery time and reports to have a rollaider at home that patient is able to use in the time being. [facility] request for [facility] Telephone call to [facility], [place]. Referral made for physical, occupational and speech therapy. Order faxed along with clinical information. Proposed discharge date: 04/12/2021 Disposition: Home with spouse. Pearl LUZ, NIS
[2021-04-11 16:18] VITALS: BP 107/61; PULSE 89; RESP 14; TEMP 36.5; O2SAT 98
[2021-04-11] MEDS: Atorvastatin Calcium 20 MG Tablet PO (22:14)
[2021-04-11] MEDS: Lidocaine 5% Patch 1 PATCH TOPICAL (22:14)
[2021-04-11] MEDS: MELATONIN 3 MG TABLET PO (22:15)
[2021-04-11] MEDS: Mirtazapine 15 MG Tablet 7.5 MG PO (22:15)
[2021-04-12 05:00] VITALS: BP 118/66; PULSE 85; RESP 16; TEMP 36.4; O2SAT 95
[2021-04-12] MEDS: Senna/Docusate Sodium 1 Tablet PO (06:35)
[2021-04-12] MEDS: Clopidogrel Bisulfate 75 MG Tablet PO (06:35)
[2021-04-12] MEDS: Polyethylene Glycol 3350 17 GM PACKET PO (06:35)
[2021-04-12] MEDS: Pantoprazole Sodium 40 MG Tablet PO (06:36)
[2021-04-12] MEDS: guaiFENesin 600 MG Tablet PO (06:36)
[2021-04-12] MEDS: Furosemide 20 MG Tablet PO (06:36)
[2021-04-12] MEDS: Timolol 0.5% 5ML OPTH.BTL 1 DRP EACH EYE (06:36)
[2021-04-12] MEDS: Aspirin 81 MG TAB.CHEW PO (08:10)
[2021-04-12] MEDS: Isosorbide Mononitrate 30 MG Tablet PO (08:10)
[2021-04-12] MEDS: Gabapentin 100 MG Capsule PO (08:11)
[2021-04-12 10:00] VITALS: RESP 16; O2SAT 95
[2021-04-12 11:56] VITALS: BP 109/65; PULSE 89; RESP 16; TEMP 36.5; O2SAT 95
--- NOTE | 2021-04-16 12:07 | MDS.RN ---
Information for the mds was obtained from review of the clinical record, interview of resident, staff, and direct observation of resident's care.
== END 2021-04-12 10:15 | disposition home health service (06) | DRG 292 ==
PROVIDERS: Admitting Provider Family Medicine Geriatric Medicine; PCP Family Medicine; Visit Provider Family Medicine Geriatric Medicine
DX: I13.0 Hypertensive heart and chronic kidney disease with heart failure and stage 1 through stage 4 chronic kidney disease, or unspecified chronic kidney disease (principal); K92.2 Gastrointestinal hemorrhage, unspecified; N18.4 Chronic kidney disease, stage 4 (severe); Z23 Encounter for immunization; I25.10 Atherosclerotic heart disease of native coronary artery without angina pectoris; E78.5 Hyperlipidemia, unspecified; F32.9 Major depressive disorder, single episode, unspecified; I50.9 Heart failure, unspecified; K21.9 Gastro-esophageal reflux disease without esophagitis; M19.90 Unspecified osteoarthritis, unspecified site; J45.909 Unspecified asthma, uncomplicated; F41.9 Anxiety disorder, unspecified; D64.9 Anemia, unspecified; E87.5 Hyperkalemia; Z79.899 Other long term (current) drug therapy; Z79.82 Long term (current) use of aspirin; Z79.02 Long term (current) use of antithrombotics/antiplatelets; Z95.0 Presence of cardiac pacemaker; Z95.2 Presence of prosthetic heart valve; Z86.73 Personal history of transient ischemic attack (TIA), and cerebral infarction without residual deficits
CPT/HCPCS: 36415; 74230; 80048; 82962; 85014; 85018; 85025; 86850; 86900; 86901; 86920; 86922; 92507; 92526; 92610; 92611; 97110; 97116; 97162; 97166; 97530; 97535; 97802; G0009; 90670

== ENCOUNTER → 2021-04-05 08:40 | Outpatient (CLI) | payer MEDICARE, SELFPAY ==
[2021-04-03 23:00] VITALS: BMI 27.3
[2021-04-05] VITALS (7 sets, daily range): BP systolic 79–111; BP diastolic 45–92; PULSE 78–103; RESP 16; TEMP 36.2–36.8; O2SAT 93–97; BMI 27.3
[2021-04-05] MEDS: Furosemide 20 MG/2 ML VIAL IV (11:57)
== END ==
PROVIDERS: PCP Family Medicine; Referring Provider Family Medicine Geriatric Medicine; Visit Provider Family Medicine Geriatric Medicine
DX: K92.2 Gastrointestinal hemorrhage, unspecified (principal)
CPT/HCPCS: 36415; 36430; 86850; 86900; 86901; 86920; 86922; J7040; J7050; P9016; A4216; J1940

== ENCOUNTER → 2021-05-28 14:18 | Outpatient (CLI) | payer MEDICARE, SELFPAY ==
[2021-04-05 08:47] VITALS: BMI 27.3
--- NOTE | 2021-05-28 16:00 | ST.MBS ---
Modified Barium Swallow - Patient Information Study Date: 05/28/21 Study Time: 16:30 Direct Billable Minutes: 120 Total Minutes procedure & reportin Diagnosis: Dysphagia, unspecified (R13.10) Referring Physician: Aristeo Montano Reason for Referral: Reassess swallow function and aspiration risk. Medical History: The patient is a 85 Female with below past medical history who was admitted to [facility]CU for rehabilitation following a hospitalization for lower GI bleed and hyponatremia from 04/03/2021-04/12/2021. During stay, she was referred for speech therapy and MBS study due to concerns for difficulty swallowing. MBS study completed on 04/10/21 revealed moderate oropharyngeal dysphagia (with notable SILENT aspiration of thin liquids) and recommended the patient for Soft and Bite Sized Textures / [place]-thick Liquids with the following compensatory strategies and supervision needs: Small Bites, Small Sips, No Straws, Sitting upright, Remain sitting upright for 30 minutes after PO intake, 1:1 Close Supervision. The patient continued with home health speech therapy for oropharyngeal strengthening. She has been referred for repeat MBS study to reassess swallow function and aspiration risk. The patient reports she currently consumes regular textures with nectar liquids at meals. She consumes unthickened water between meals per her physician?s recommendations, but reports she does not complete oral care after each meal prior to consuming the water. PMH: Anxiety, Asthma, CHF, GERD (gastroesophageal reflux disease), GI bleed, History of transcatheter aortic valve replacement (TAVR), Hypertension, Kidney disease, Pacemaker, Stroke/cerebrovascular accident Current Diet Ordered: Soft and Bite Sized Textures / [place] Thick Liquid Mental Status: WNL Respiratory Status: Oxygenating on Room Air - Study Findings Consistencies: Thin Liquid, [place] Thick Liquid, Honey Thick Liquid, Pudding, Cookie - Penetration-Aspiration Scale Penetration-Aspiration Scale: OBJECTIVE ASSESSMENT OF SWALLOW FUNCTION (QUANTITATIVE ? PER TRIAL): PENETRATION / ASPIRATION SCALE (BARRERA): 1 = does not enter airway 2 = enters airway/above vocal folds/ejected 3 = enters airway/above vocal folds/not ejected 4 = enters airway/contacts vocal folds/ejected 5 = enters airway/contacts vocal folds/not ejected 6 = enters airway/below vocal folds/ejected 7 = enters airway/below vocal folds/not ejected despite effort 8 = enters airway/below vocal folds/no effort VIDEOFLOROSCOPIC SCALE SCORE (BARRERA): Grade I = aspiration of material that has penetrated into the laryngeal vestibule, intact cough reflex Grade II = aspiration < 10 % of the bolus, intact cough reflex Grade III = aspiration of < 10 % of the bolus, reduced cough reflex or aspiration of > 10 % of the bolus, intact cough reflex Grade IV = aspiration of > 10 % of the bolus, reduced cough reflex - Penetration-Aspiration Scale Score Thin Liquid via teaspoon Result: 1= does not enter airway Thin Liquid via teaspoon Trial 2 Result: 1= does not enter airway Thin Liquid via small single sip from cup Result: 2= enter airway/above vocal folds/ejected Thin Liquid via large single sip from cup Result: 1= does not enter airway Thin Liquid via sequential sips from cup Result: 2= enter airway/above vocal folds/ejected [place] Thick Liquid via small single sip from cup Result: 1= does not enter airway Honey Thick Liquid via small single sip from cup Result: 1= does not enter airway Pudding via small single sip from cup Result: 1= does not enter airway Cookie via small single sip from cup Result: 1= does not enter airway Thin Liquid via small single sip from cup Trial 2 Result: 2= enter airway/above vocal folds/ejected Thin Liquid via small single sip from cup Effortful swallow Result: 1= does not enter airway Thin Liquid via single sip from straw Result: 8= enters airway/below vocal folds/no effort - Patient did present with weak, delayed and ineffective cough after the trial. Thin Liquid via small single sip from cup Effortful swallow Trial 2 Result: 1= does not enter airway - Oral Phase Labial Seal: Interlabial escape, no progression to anterior lip Tongue Control During Bolus Hold: Posterior escape of less than half of bolus Bolus Preparation/Mastication: Slow prolonged chewing/mashing with complete recollection Bolus Transport/Lingual Motion: Delayed initiation of tongue motion Oral Residue: Residue collection on oral structures - Pharyngeal Phase Initiation of Pharyngeal Swallow: Bolus head in pyriforms Soft Palate Elevation: Trace column of contrast/air between soft palate and pharyngeal wall Laryngeal Elevation: Partial superior movement thyroid cart/partial apprx aryt-epig petiole Anterior Hyoid Excursion: Partial anterior movement Epiglottic Movement: Partial inversion Laryngeal Vestibule Closure at Height of Swallow: Incomplete; narrow column of air/contrast in laryngeal vestibule Pharyngeal Stripping Wave: Present - diminished Pharyngoesophageal Segment Opening: Parital distension and partial duration; parital obstruction of flow Tongue Base Retraction: Narrow column of contrast between tongue base & post. pharyngeal wall Pharyngeal Residue: Collection of residue within or on pharyngeal structures - Esophageal Phase Esophageal Clearance: Esophageal retention w/ retrograde flow below pharyngoesophageal seg. - Treatment Strategies Effects of treatment strategies attemped:: Decreased bolus size = Effective. Decreased bolus rate = Effective. Effortful swallow = Effective; however, the patient required repetition of instructions to perform during study. Double swallow = Effective to clear pharyngeal residues. Use of straw = NOT Effective. - Diagnosis/Impression Diagnosis: Mild-moderate oropharyngeal phase dysphagia (R13.12) Impression: The oral phase is primarily marked by decreased bolus control of thin liquid trials with premature posterior loss of portion of bolus resulting in suboptimal placement upon swallow onset. She also presented with prolonged mastication, piecemeal deglutition of cookie, and mild oral residues. She independently initiated multiple swallows on certain trials to clear oral residues. The pharyngeal phase of the swallow is marked by delayed swallow onset, especially noted with thin liquid trials consumed sequentially and via straw. She had deficits in airway closure due to decreased hyoid excursion, laryngeal elevation, and partial epiglottic inversion. The patient additionally has decreased tongue base retraction and duration of UES opening resulting in mild-moderate pharyngeal residues after the swallow. She presented with penetration of thin liquids, which decreased with decreased bolus size and use of effortful swallow. She additionally presented with SILENT aspiration during the swallow of thin liquids sips consumed via straw. The esophageal phase of the swallow was observed to have retrograde flow of boluses below the UES. The patient appears to have a narrowing of the upper esophagus, as well as a tortuous lower esophagus (SEE photo at end of MBS study in PACS). - Recommendations Diet: Regular Textures - Easy to Chew (IDDSI Level 7), [place]-thick Liquids Compensatory Strategies: Small Bites, Small Sips, No Straws, Slow Rate - Bites/sips one at a time., Multiple Swallows - Consider intermittent use of double swallow during meals to clear pharyngeal residues., Sitting upright, Remain sitting upright for 30 minutes after PO intake Supervision: Assist as needed Recommend Repeat Modified Barium Swallow: Yes - Would recommend repeat MBS study in 6-8 weeks after continued oropharyngeal strengthening. Need for Skilled Speech Therapy Services: Yes Comment: Will recommend the patient for continued dysphagia therapy through home health to address mild-moderate deficits in oropharyngeal function of swallow. Would consider the patient for oropharyngeal strengthening to improve hyolaryngeal elevation and excursion, tongue base retraction, swallow onset, and UES opening. The patient would benefit from thorough education regarding diet recommendations and recommended compensatory strategies. Would strongly consider the patient for implementation of [place] Free Water Protocol with home health speech therapist with emphasis on utilizing strategies for small sips, one at a time, and effortful swallow in order to promote hydration. Education Completed: 1. Described result of evaluation., 2. Pt understands evaluation & agrees with goals and treatment plan., 4. Family/caregivers understand evaluation & agree w/ goals & tx plan., 7. Pt requires further education on strategies & risks., 8. Family/caregivers require further education on strategies & risks. - Status Active ST Patient: Active - Contact Information [facility] Speech Therapy:: Krysta Madrigal M.A., [facility] Speech Language Pathologist [facility] [address] [place] [address] [email or web address] [phone]
== END ==
PROVIDERS: PCP Family Medicine; Referring Provider Family Medicine; Visit Provider Family Medicine
DX: R13.10 Dysphagia, unspecified (principal)
CPT/HCPCS: 74230; 92611

== ENCOUNTER → 2023-03-05 | Outpatient (CLI) | payer MEDICARE, SELFPAY ==
--- NOTE | 2023-03-05 13:02 | CDU_ITS ---
Reason For Study: Carotid Stenosis Rt. Velocities/BP Lt. Velocities/BP Prox CCA 53.4/12.2 cm/sec. Prox CCA 76.0/14.9 cm/sec. Mid CCA 66.7/16.6 cm/sec. Mid CCA 70.7/19.2 cm/sec. Dist CCA 71.4/16.6 cm/sec. Dist CCA 55.4/12.8 cm/sec. Prox ICA 79.0/15.7 cm/sec. Prox ICA 77.1/16.6 cm/sec. Mid ICA 59.1/15.7 cm/sec. Mid ICA 67.6/13.8 cm/sec. Dist ICA 77.1/25.1 cm/sec. Dist ICA 68.7/18.2 cm/sec. Rt. ICA/CCA = 1.2. Lt. ICA/CCA = 1.1. Prox ECA 97.1/5.8 cm/sec. Prox ECA 78.5/6.0 cm/sec. Rt. Vert. 48.5/8.2 cm/sec. Lt. Vert. 67.6/11.0 cm/sec. Right Extracranial There is intimal thickening but no significant atherosclerotic plaque noted in the right common carotid artery. There is heterogeneous, irregular atherosclerotic plaque noted in the right internal carotid artery. There is intimal thickening but no significant atherosclerotic plaque noted in the right external carotid artery. Antegrade flow is noted in the right vertebral artery. Left Extracranial There is homogeneous, smooth atherosclerotic plaque noted in the left common carotid artery. There is heterogeneous, irregular atherosclerotic plaque noted in the left internal carotid artery. The atherosclerotic plaque causes acoustic shadowing. There is heterogeneous, irregular atherosclerotic plaque noted in the left external carotid artery. The atherosclerotic plaque causes acoustic shadowing. Antegrade flow is noted in the left vertebral artery. Procedure Carotid Duplex [id number]. This is a Carotid Duplex examination using B-mode, color flow and specral Doppler. The exam was diagnostic. Exam performed in department. VL/Carotid Duplex Ultrasound Interpretation Summary Mild (<50%) stenosis right extracranial internal carotid. Mild (<50%) stenosis left extracranial internal carotid. Flow within the vertebral arteries is antegrade bilaterally. Ordering Physician: Trung Amaya Referring Physician: Aristeo Montano Performed By: Ross Link RVT
== END | disposition home or self-care (01) ==
LOC: CVS 13:01
PROVIDERS: PCP Family Medicine; Referring Provider Surgery Vascular Surgery; Visit Provider Surgery Vascular Surgery
DX: I65.23 Occlusion and stenosis of bilateral carotid arteries (principal)
CPT/HCPCS: 93880